=== PATIENT | male | born 1995 | race Caucasian/White ===

== ENCOUNTER 2023-05-13 11:25 | Emergency (ER) | payer BC ==
[~2023-05-13] VITALS: Ht 185.4 cm; Wt 70.5 kg
[2023-05-13 11:45] VITALS: BP 119/89; TEMP 98.5
[2023-05-13] MEDS ORDERED: DESYREL 50MG50 MG PO (12:34)
[2023-05-13] MEDS ORDERED: LEXAPRO 10MG10 MG PO (12:34)
[2023-05-13 12:40] VITALS: PULSE 71
== END 2023-05-13 12:40 | disposition home or self-care (01) ==
LOC: COL.ER 11:25
DX: F41.0 Panic disorder [episodic paroxysmal anxiety] (principal)